=== PATIENT | female | born 1980 | race Caucasian/White ===

== ENCOUNTER 2017-01-11 08:37 | Emergency (ER) | payer OTHER ==
[~2017-01-11] VITALS: Ht 160 cm; Wt 75.5 kg
[~2017-01-11 08:37] MED LIST: ABIL5TAB6 PO; B12-1CHW CHEW; CYMB30CA PO; LISI-363 PO; SPIR50TA21 PO; WELL150T PO
[2017-01-11 08:42] VITALS: BP 157/100; PULSE 84; RESP 16; TEMP 98.4; O2SAT 99
[2017-01-11] MEDS ORDERED: LISI-515 PO (09:14)
[2017-01-11] MEDS ORDERED: BUPR300T PO (09:14)
[2017-01-11] MEDS ORDERED: CYMB60CA PO (09:14)
[2017-01-11] MEDS ORDERED: MONT10TA4 PO (09:14)
[2017-01-11] MEDS ORDERED: ARIP1TAB5 PO ×2 (09:14→09:34)
[2017-01-11] MEDS ORDERED: AMLO5TAB2 PO (09:14)
--- NOTE | 2017-01-11 09:35 | PD ---
HPI Chief Complaint: Suicide Ideation/Attempt Time Seen by Provider: 08:57 Travel History International Travel<30 days: No Contact w/Intl Traveler<30days: No Traveled to known affect area: No History of Present Illness HPI So 36 year-old woman presents to the emergency department complaining that her mind. Bracing. She is a history of depression and bipolar disorder. She's not been sleeping well. She takes Cymbalta, but been out of her Abilify for the past month or so. She is from [place] her recently moved to the [facility] health care of her mom. She has significant insurance states that she's been calling around hasn't been significant any psychiatrist. She states she is having trouble going to work because of her symptoms. She states she gets some fleeting thoughts of harming herself but that she would not act on it. States she really just want to get her mind that shot down. History Past Medical History Narrative Medical Bipolar disorder/depression Hypertension LMP: has a IUD : 0 Para: 0 Social History Alcohol Use: Yes (occ) Tobacco Use: Yes (2PPD) Allergies-Medications (Allergen,Severity, Reaction): Coded Allergies: No Known Allergies (Unverified , 01/11/17) Reported Meds & Prescriptions Reported Meds & Active Scripts Active Reported Lisinopril 20 Mg Tab 20 Mg PO DAILY Amlodipine (Amlodipine Besylate) 5 Mg Tab 5 Mg PO DAILY Abilify (Aripiprazole) 10 Mg Tab 10 Mg PO DAILY Cymbalta DR (Duloxetine HCl) 60 Mg Capdr 60 Mg PO DAILY Bupropion HCl ER 24 HR (Bupropion HCl) 300 Mg Tab 300 Mg PO DAILY Montelukast (Montelukast Sodium) 10 Mg Tab 10 Mg PO HS Review of Systems Except as stated in HPI: all other systems reviewed are Neg Physical Exam Narrative GENERAL: Well-appearing 36 year-old woman, no acute distress. SKIN: Focused skin assessment warm/dry. MUSCULOSKELETAL: No obvious deformities. No edema. NEUROLOGICAL: Awake and alert. No obvious cranial nerve deficits. Motor grossly within normal limits. Normal speech. PSYCHIATRIC: Appropriate mood and affect; insight and judgment normal. Speech is normal. No evidence psychotic symptoms. Forward thinking. Endorses some passive thoughts of self-harm, but denies any explicit suicidality or homicidality. Data Data Last Documented VS Vital Signs Date Time Temp Pulse Resp B/P Pulse Ox O2 Delivery O2 Flow Rate FiO2 01/11/17 08:42 98.4 84 16 157/100 99 MDM Medical Decision Making Medical Screen Exam Complete: Yes Emergency Medical Condition: Yes Differential Diagnosis Bipolar disorder, anxiety, other Narrative Course Medical decision making Is a 36 year-old woman presents emergent heart complaining of mind racing. She does not appear to be overtly suicidal. She is also not overtly manic. Insight and judgment are normal. She needs help getting outpatient follow-up. Just needs refill of her Abilify. She drove here. She is working. She states care of her her mother. We will refill her Abilify. We'll give her referral for [facility]. I offered a transfer to the main hospital for mental health screening she desired, but she does not. She does not meet criteria for involuntary hospitalization. Therefore we'll give her outpatient resources, renew medication. Diagnosis Primary Impression: Bipolar disorder Referrals: [facility] (Out patient) 2 days Additional Instructions: Take medications as prescribed. Follow-up with [facility] in 1-2 days for repeat evaluation. Return to the emergency department for any new or worsening symptoms. Med/Other Pt SpecificInfo: Prescription(s) given Scripts Aripiprazole (Abilify)10 Mg Tab10 Mg PO DAILY #30 TAB Ref 0 Prov:Jc Johnson MD 01/11/17 Disposition: 01 DISCHARGE HOME Condition: Stable Jc Johnson MD Jan 11, 2017 09:35
[2017-01-11] MEDS ORDERED: ARIPiprazole 10 MG TAB PO ONE (10:00)
== END 2017-01-11 10:05 | disposition home or self-care (01) ==
LOC: PHED 08:37
DX: F31.9 Bipolar disorder, unspecified (principal); I10 Essential (primary) hypertension; Z97.5 Presence of (intrauterine) contraceptive device; F17.210 Nicotine dependence, cigarettes, uncomplicated; Z79.899 Other long term (current) drug therapy
CPT/HCPCS: 99284